=== PATIENT | female | born 1965 | race Caucasian/White ===

== ENCOUNTER → 2018-07-09 | Outpatient (CLI) | payer OTHER ==
--- NOTE | 2018-07-09 15:43 | EKG ---
FACILITY: [facility] PATIENT NAME: MICKY BECERRA : [id number] MR: [id number]: [id number] EXAM DATE: ORDERING PHYSICIAN: SHIRLEY NOEL TECHNOLOGIST: VIVIAN Test Reason : PREOP-HAND Blood Pressure : / mmHG Vent. Rate : 068 BPM Atrial Rate : 068 BPM P-R Int : 138 ms QRS Dur : 108 ms QT Int : 386 ms P-R-T Axes : 057 084 053 degrees QTc Int : 410 ms Normal sinus rhythm Normal ECG No previous ECGs available Confirmed by SHIRLEY LARA ([id number]) on 07/09/2018 9:38:50 PM Referred By: BERT Confirmed By:SHIRLEY LARA
== END ==
LOC: RESP 15:26
PROVIDERS: ATTEND Anesthesiology
DX: Z01.812 Encounter for preprocedural laboratory examination (principal); Z01.810 Encounter for preprocedural cardiovascular examination; S62.617A Displaced fracture of proximal phalanx of left little finger, initial encounter for closed fracture
CPT/HCPCS: 93005